=== PATIENT | male | born 1995 ===

== ENCOUNTER 2017-12-03 20:28 | Emergency (ER) | payer SELFPAY, MEDICAID ==
[2017-12-03] MEDS: ONDANSETRON (ODT) 4 MG TAB ODT (23:53)
[2017-12-03] MEDS: IBUPROFEN 800 MG TAB PO (23:53)
[2017-12-03] MEDS: ACETAMINOPHEN 325 MG TAB PO (23:53)
== END 2017-12-04 01:32 | disposition home or self-care (01) ==
LOC: FTE 20:28
DX: J03.90 Acute tonsillitis, unspecified (principal); J01.00 Acute maxillary sinusitis, unspecified
CPT/HCPCS: 87400; 99284